=== PATIENT | female | born 1985 | race Caucasian/White ===

== ENCOUNTER 2024-08-18 08:05 | Inpatient (IN) ==
[2024-08-18] MEDS: Oxytocin in LR 20,000 MILLI.UNIT/1,000 ML BAG IV SCH (09:31)
[2024-08-18] MEDS: Lactated Ringers 1000 ml BAG 1,000 ML IV SCH (09:31)
[2024-08-18 09:48] LABS: ABS Eosinophils 0.1 10^3/uL (0.0-0.5); ABS Lymphocytes 2.1 10^3/uL (1.0-4.8); ABS Monocytes 0.7 10^3/uL (0.0-0.9); ABS Neutrophils 7.8 10^3/uL (1.5-7.6); ABS Nucleated RBC 0.01 10^3/ul; Eosinophil % 0.8 %; Hematocrit 38.7 % (35-45); Hemoglobin 13.2 g/dL (11.5-14.3); Lymphocyte % 19.2 %; Mean Corpuscular Hemoglobin 31.9 pg (27-33); Mean Corpuscular Hgb Conc 34.2 g/dL (31-36); Mean Corpuscular Volume 93.2 fL (80-97); Nucleated Red Blood Cells % 0.1 %/100WBC (0.0-0.8); Platelet Count 152 10^3/uL (150-450); Red Blood Count 4.15 10^6/uL (3.63-4.92); Red Cell Distribution Width 16.3 % (12-17); White Blood Count 10.7 10^3/uL (3.8-11.8)
[2024-08-18 10:39] LABS: Urine Benzodiazepine Screen None Detected (None Detect); Urine Cannabinoids Screen None Detected (None Detect); Urine Opiates Screen None Detected (None Detect)
[2024-08-18] MEDS: Buffered Lidocaine 1% SYRIN 1 ml INTRADERM ONE (13:29)
[2024-08-18] MEDS ORDERED: Phenylephrine 40 mcg/mL 10mL (400mcg) SYRINGE ONE (23:32)
[2024-08-19] MEDS: OBEPIDURAL (200 ML) 200 ML EPIDURAL ONE (00:31)
[2024-08-19] MEDS ORDERED: Sodium Citrate/Citric Acid LIQ 15 ML UDC PO PRN (00:47)
[2024-08-19] MEDS ORDERED: Phenylephrine 40 mcg/mL 10mL (400mcg) SYRINGE IV PUSH PRN ×2 (00:47)
[2024-08-19 01:47] LABS: Urine Appearance Clear; Urine Bilirubin Negative (Negative); Urine Blood 1+ (Negative); Urine Color Colorless; Urine Glucose Negative (Negative); Urine Ketones Trace (Negative); Urine Nitrite Negative (Negative); Urine Protein Negative (Negative); Urine Specific Gravity 1.009 (1.002-1.030); Urine Urobilinogen Negative (Negative); Urine pH 6.5 (5.0-8.0)
[2024-08-19 01:58] LABS: Urine Bacteria Absent /HPF (Absent); Urine Red Blood Cell 1+(3-5/hpf) /HPF (0-Trace); Urine Squamous Epithelial Cell Present /HPF (Absent); Urine White Blood Cell Trace(0-5/hpf) /HPF (0-Trace)
[2024-08-19] MEDS: Lidocaine 1% VIAL 10 MG/ML 30 ML VIAL INJ PRN (03:46)
[2024-08-19] MEDS ORDERED: Glycerin ADULT 2.4 gm SUPP PR PRN (04:01)
[2024-08-19] MEDS: Lactated Ringers 1000 ml BAG 1,000 ML IV ONE ×2 (04:15)
[2024-08-19] MEDS: Lactated Ringers 1000 ml BAG 1,000 ML IV SCH (04:15)
[2024-08-19] MEDS: Witch Hazel PAD JAR TOPICAL PRN (04:57)
[2024-08-19] MEDS: Dibucaine 1% OINT 28.35 GM TUBE PR PRN (04:57)
[2024-08-19] MEDS ORDERED: Lactated Ringers 1000 ml BAG 1,000 ML IV SCH (05:00)
[2024-08-19] MEDS: Lidocaine 1.5% EPI 1:200,000 30 ML SDV ONE (06:32)
[2024-08-19] MEDS: Oxytocin in LR 20,000 MILLI.UNIT/1,000 ML BAG IV SCH (06:32)
[2024-08-19] MEDS: OBEPIDURAL (200 ML) 200 ML EPIDURAL SCH (07:04)
[2024-08-20 06:56] LABS: ABS Basophils 0.1 10^3/uL (0.0-0.1); ABS Eosinophils 0.3 10^3/uL (0.0-0.5); ABS Lymphocytes 2.8 10^3/uL (1.0-4.8); ABS Monocytes 0.7 10^3/uL (0.0-0.9); ABS Neutrophils 7.8 10^3/uL (1.5-7.6); Eosinophil % 2.4 %; Hematocrit 37.5 % (35-45); Hemoglobin 12.4 g/dL (11.5-14.3); Mean Corpuscular Hemoglobin 31.2 pg (27-33); Mean Corpuscular Hgb Conc 33.1 g/dL (31-36); Mean Corpuscular Volume 94.4 fL (80-97); Mean Platelet Volume 9.6 fL (7.5-11.2); Platelet Count 156 10^3/uL (150-450); Red Blood Count 3.97 10^6/uL (3.63-4.92); Red Cell Distribution Width 16.3 % (12-17); White Blood Count 11.6 10^3/uL (3.8-11.8)
[2024-08-20 08:18] VITALS: BP 121/65
== END 2024-08-20 13:16 | disposition home or self-care (01) | DRG 560 ==
LOC: MCHOBOUT 08:05 → MCHOB 08:43
PROVIDERS: ADMIT Midwife; ATTEND Midwife